=== PATIENT | male | born 1955 | race African-American/Black ===

== ENCOUNTER 2017-01-09 13:15 | Day surgery (SDC) | payer BC ==
--- NOTE | ~2017-01-09 | EGD ---
EGD REPORT [facility] [address] [address] NAME: RINKU HAYES JR : 51 STATUS : REG [facility]#: [id number] AGE: 61 ADM/REG DATE : 01/09/17 MR#: [id number] REPORT SERV DATE: 01/09/17 DICTATED BY: VIRIDIANA COSTELLO DATE: 01/09/17 REPORT STATUS : Draft TRANSCRIBED BY: [facility] DATE: 01/09/17 Endoscopy Center Patient Name: Rinku Hayes Jr Date of : 1955 Attending MD: VIRIDIANA COSTELLO, Procedure Date No Time: 01/09/2017 Procedure: Upper EUS Indications: Gastric mucosal mass/polyp found on endoscopy, Gastric deformity on endoscopy/Subepithelial tumor versus extrinsic compression Referring MD: ROSY SAMANIEGO JR, MEAGAN AMATO MD Medicines: Monitored Anesthesia Care Complications: No immediate complications. Estimated blood loss: None. Procedure: Pre-Anesthesia Assessment: - ASA Grade Assessment: III - A patient with severe systemic disease. After obtaining informed consent, the endoscope was passed under direct vision. Throughout the procedure, the patient's blood pressure, pulse, and oxygen saturations were monitored continuously. The Endoscope was introduced through the mouth, and advanced to the second part of duodenum. The GIF [id number] was introduced through the mouth, and advanced to the second part of duodenum. The upper EUS was accomplished without difficulty. The patient tolerated the procedure well. Findings: Endoscopic Finding : The examined esophagus was endoscopically normal. A single medium-sized papule (nodule) with no bleeding and no stigmata of recent bleeding was found in the gastric fundus. A single 25 mm sessile polyp with no bleeding and no stigmata of recent bleeding was found in the gastric body. Biopsies were taken with a cold forceps for histology. This had raised edges and central depression. Verification of patient identification for the specimen was done. Estimated blood loss was minimal. A few non-bleeding dispersed erosions were found in the gastric body and in the gastric antrum. There were no stigmata of recent bleeding. These appeared flat and sort of like small versions of the the 25 lesion seen in the stomach. The examined duodenum was endoscopically normal. Endosonographic Finding : A round intramural (subepithelial) lesion was found in the fundus of the stomach. The lesion was hypoechoic and calcified. Sonographically, the lesion appeared to originate from the muscularis propria (Layer 4). The EGD REPORT [address] [place]. [address] NAME: RINKU HAYES : [birth year] STATUS : REG [facility] [place] PAT#: [id number] AGE: 61 ADM/REG DATE : 01/09/17 MR#: [id number] REPORT SERV DATE: 01/09/17 DICTATED BY: VIRIDIANA COSTELLO DATE: 01/09/17 REPORT STATUS : Draft TRANSCRIBED BY: [employer] DATE: 01/09/17 lesion also appeared to involve the following wall layer(s): muscularis propria (Layer 4). The lesion measured 25 mm (in maximum thickness). The lesion also measured 22 mm in diameter. The outer endosonographic borders were poorly defined. Fine needle aspiration was performed. Color Doppler imaging was utilized prior to needle puncture to confirm a lack of significant vascular structures within the needle path. Four passes were made with the 22 gauge needle and with the 25 gauge needle using a transgastric approach. Final cytology results are pending. Due to location and firmness of lesion FNA was very difficult. Endosonographic imaging of the pancreas showed sonographic changes indicative of moderate-severe chronic pancreatitis in the entire pancreas. The parenchyma had calcifications, hyperechoic strands, hyperechoic foci, hypoechoic foci, lobularity and shadowing foci. The pancreatic duct had duct dilation. The pancreatic duct measured up to 6 mm in diameter. There was no sign of significant endosonographic abnormality in the common bile duct. An unremarkable gallbladder was identified. No lymphadenopathy seen. There was no sign of significant endosonographic abnormality in the examined duodenum. There was no sign of significant endosonographic abnormality in the esophagus. Impression: - Normal esophagus. - A single medium-sized papule (nodule) with no bleeding and no stigmata of recent bleeding was found in the stomach. - A single gastric polyp. Biopsied. - Erosive gastropathy. - Normal examined duodenum. - An intramural (subepithelial) lesion was found in the fundus of the stomach. The lesion appeared to originate from within the muscularis propria (Layer 4). The diagnosis is a stromal cell (smooth muscle) neoplasm. - Endosonographic imaging of the pancreas showed sonographic changes consistent with moderate-severe chronic pancreatitis. - There was no sign of significant pathology in the common bile duct. - There was no sign of significant pathology in the examined duodenum. - There was no sign of significant pathology in the esophagus. Recommendation: - Return to previous diet. - Continue present medications. - Await cytology results and await path results. EGD REPORT [address] [address] NAME: RINKU HAYES JR : 51 STATUS : REG [facility]#: [id number] AGE: 61 ADM/REG DATE : 01/09/17 MR#: [id number] REPORT SERV DATE: 01/09/17 DICTATED BY: VIRIDIANA COSTELLO DATE: 01/09/17 REPORT STATUS : Draft TRANSCRIBED BY: [employer] DATE: 01/09/17 - Return to referring physician. Procedure Code(s): --- Professional --- 94259, Esophagogastroduodenoscopy, flexible, transoral; with transendoscopic ultrasound-guided intramural or transmural fine needle aspiration/biopsy(s) (includes endoscopic ultrasound examination of the esophagus, stomach, and either the duodenum or a surgically altered stomach where the jejunum is examined distal to the anastomosis) Diagnosis Code(s): --- Professional --- R93.3, Abnormal findings on diagnostic imaging of other parts of digestive tract K31.9, Disease of stomach and duodenum, unspecified K31.7, Polyp of stomach and duodenum D49.0, Neoplasm of unspecified behavior of digestive system CPT copyright 2013 [employer] [place] [employer]. All rights reserved. The codes documented in this report are preliminary and upon senior research project manager review may be revised to meet current compliance requirements. Attending Participation: I personally performed the entire procedure. VIRIDIANA COSTELLO, 01/09/2017 3:40 PM Number of Addenda: 0 Note Initiated On: 01/09/2017 2:57 PM [address] [address]
[~2017-01-09 13:15] MED LIST: ASAB PO; AZASAN100 MG PO; COREG25 PO; D 5000 PO; HUMALOG SC; LANTUS SC; LANTUSCART SC; NORV10 PO; PHOSLO PO; PRAVAC PO; PRILOSEC40 MG PO; PRIN20 PO; PROGRAF5 PO; SODBICAR10 PO
[2017-01-09 13:58] LABS: BUN (BLOOD UREA NITROGEN) 25 MG/DL (6-23); CALCIUM, SERUM 8.6 MG/DL (8.5-10.4); CHLORIDE, SERUM 112 MMOL/L (96-112); CO2 (CARBON DIOXIDE) 25 MMOL/L (24-34); CREATININE 1.07 MG/DL (0.70-1.30); GFR AFRICAN AMERICAN 85 ML/MIN (>=60); GFR NON AFRICAN AMERICAN 73 ML/MIN (>=60); GLUCOSE, SERUM 65 MG/DL (60-99); POTASSIUM, SERUM 3.9 MMOL/L (3.5-5.3); SODIUM, SERUM 141 MMOL/L (135-148)
[2017-02-09] MEDS ORDERED: HUMALOG SC (14:17)
[2017-04-09] MEDS ORDERED: CENTRUM PO (10:58)
[2017-04-22] MEDS ORDERED: P20 PO (14:12)
[2017-04-22] MEDS ORDERED: PERCOCET 7.5/321 TAB PO (14:13)
== END 2017-01-09 23:59 | disposition home or self-care (01) ==
LOC: DMU 13:15
PROVIDERS: Anesthesiology; Internal Medicine Gastroenterology
PROC: 0DB68ZX Excision of Stomach, Via Natural or Artificial Opening Endoscopic, Diagnostic (ICD-10-PCS; principal; 2017-01-09 15:00)
DX: K31.89 Other diseases of stomach and duodenum (principal); K31.7 Polyp of stomach and duodenum; R93.3 Abnormal findings on diagnostic imaging of other parts of digestive tract; I10 Essential (primary) hypertension; E11.9 Type 2 diabetes mellitus without complications; Z88.1 Allergy status to other antibiotic agents; Z88.5 Allergy status to narcotic agent; Z98.890 Other specified postprocedural states; Z79.4 Long term (current) use of insulin
CPT/HCPCS: 80048; 82962; 88173; 88305; C1725